=== PATIENT | male | born 1955 | race Caucasian/White ===

== ENCOUNTER 2017-01-04 14:05 | Emergency (ER) | payer OTHER ==
[2017-01-04 14:17] VITALS: BP 113/66
--- NOTE | 2017-01-04 14:59 | PROVIDER DOCUMENTATION ---
HPI-Respiratory General - History of Present Illness-Resp Quality of Pain: reports: aching Severity in ED: reports: moderate Onset/Duration: reports: 2 days ago Timing: reports: still present Similar Symptoms Previously?: No Recently seen or treated by another doctor?: No <Arnie Garibay - Last Filed: 01/04/17 14:54> <FatmataLolly JohnMack - Last Filed: 01/04/17 15:08> - General Chief Complaint: Cough Stated Complaint: BILA EAR PAIN,COUGHING,CONGESTED Time Seen by Provider: 01/04/17 14:22 Allergies/Adverse Reactions: Patient Allergies Allergy/AdvReac Type Severity Reaction Status Date / Time haloperidol [From Haldol] Allergy Unknown Verified 11/29/16 17:24 haloperidol lactate * Allergy Unknown Verified 11/29/16 17:24 [From Haldol] lamotrigine [From Lamictal] Allergy Unknown Verified 11/29/16 17:24 Home Medications: Home Medication List Medication Instructions Recorded Confirmed Last Taken Type Aspirin [Adult Low Dose Aspirin EC] 81 mg PO DAILY #30 tablet. 11/29/16 Unknown Rx Hydrochlorothiazide 50 mg PO DAILY #30 tablet 11/29/16 Unknown Rx Levothyroxine [Synthroid] 100 microgm PO DAILY #30 tablet 11/29/16 Unknown Rx Amoxicillin/Pot Clavulanate 875 mg PO Q12HR #14 tablet 01/04/17 Unknown Rx [Augmentin] Chlorpheniramine/Dextromethorp 1 each PO Q6H PRN PRN #30 tablet 01/04/17 Unknown Rx [Coricidin Hbp Cough & Cold Tab] Neomycin/Polymyxn/Hc Otic Soln 4 drop BOTH EARS TID #1 bottle 01/04/17 Unknown Rx [Cortisporin Otic Soln] - History of Present Illness-Resp Nature of Presenting Problem: REPORTS 2 DAY HX OF COUGH YELLOW AND PRODUCTIVE IN NATURE. ALSO COMPLAINS OF BILATERAL EAR PAIN WITH THROAT PAIN. REPORTS SICK CONTACTS OF UNKNOWN NATURE. REPORTS CHILLS. ILAN Anders,N,V,D. (Arnie Garibay) Review of Systems - Adult - REVIEW OF SYSTEMS - ADULT Constitutional: reports: chills. denies: fever, fatique, weight loss Eyes: reports: no symptoms reported Ears, Nose, Mouth & Throat: reports: ear pain, throat pain. denies: sinus problem, mouth swelling Cardiovascular: denies: chest pain, irregular heart rate, orthopnea, syncope Respiratory: reports: cough. denies: pleurisy, shortness of breath, wheezing Gastrointestinal: denies: abdominal pain, diarrhea, nausea, vomiting Genitourinary: reports: no symptoms reported Musculoskeletal: reports: no symptoms reported Integumentary: reports: no symptoms reported Neurological: reports: no symptoms reported Psychiatric: reports: no symptoms reported Endocrine: reports: no symptoms reported Hematologic/Lymphatic: reports: no symptoms reported Allergic/Immunologic: reports: no symptoms reported All Other Systems: Reviewed and Negative <Arnie Garibay - Last Filed: 01/04/17 14:54> Past History - Adult - PAST MEDICAL HISTORY-ADULT Review of Records: reports: Nursing Assessment Review, Medications Reviewed Major Childhood Illnesses: reports: denies history Cardiovascular: reports: HTN, hyperlipidemia Gastrointestinal: reports: GERD Endocrine/Immune: reports: Diabetes, thyroid disorder - IMMUNIZATION STATUS Childhood Immunizations: See Nurse Assessment Flu Vaccine: See Nurse Assessment - SOCIAL HISTORY Smoking: denies Substance Use: none/never <Arnie Garibay - Last Filed: 01/04/17 14:54> Physical Exam-General - PHYSICAL EXAM-ADULT Initial Vital Signs Reviewed: Yes - CONSTITUTIONAL General Appearance: appears well, alert, no apparent distress - EYES Eyes: PERRL/EOMI - HEAD, EARS, NOSE, MOUTH & THROAT HENMT: moist mucous membranes, pharynx normal, pharyngeal erythema, TM abnormal (BILATERAL RED) - NECK Neck: non-tender, full range of motion, supple, normal inspection, other (MILD CERVICAL LYMPHADENOPATHY BILATERALLY) - RESPIRATORY Respiratory: chest non-tender, lungs clear, no pleuratic chest pain, no respiratory distress, no accessory muscle use, decreased breath sounds ( BILATERALLY). negative: crackles, rales, rhonchi, stridor, wheezing - CARDIOVASCULAR Cardiovascular: regular rate, rhythm - GASTROINTESTINAL (ABDOMEN) Abdominal Exam: normal bowel sounds, non tender, soft, no organomegaly, no pulsatile mass - MUSCULOSKELETAL Back Exam: normal inspection, no CVA tenderness, no vertebral tenderness Extremity: normal range of motion, non-tender - SKIN Integumentary: normal color, normal turgor, warm/dry - NEUROLOGIC Neurologic: grossly normal - PSYCHIATRIC Psych/Mental Status: normal mood/affect, normal thought content, normal thought process, oriented x 3 <Arnie Garibay - Last Filed: 01/04/17 14:54> Progress <Arnie Garibay - Last Filed: 01/04/17 14:54> - XRAY 1 XRAY Study: Chest Impression: See EMR Report (no acute disease, per Dr. Napier) XRAY Interpretation: No pNA <Lolly AvilezMack - Last Filed: 01/04/17 15:08> - PLAN OF CARE/RESULTS Progress/Plan/Lab Results: Orders Category Date Time Status CHEST-2 VIEWS [RAD] Stat Exams 01/04/17 14:25 Taken DIRECT STREP Stat Lab 01/04/17 14:26 Completed INFLUENZA SCREEN A/B Stat Lab 01/04/17 14:26 Received Vital Signs - 24 hr 01/04/17 14:12 Temperature 98.7 F Pulse Rate 97 H Respiratory 18 Rate Blood Pressure 113/66 O2 Sat by Pulse 97 Oximetry (Arnie Garibay) Orders Category Date Time Status CHEST-2 VIEWS [RAD] Stat Exams 01/04/17 14:25 Taken DIRECT STREP Stat Lab 01/04/17 14:26 Completed INFLUENZA SCREEN A/B Stat Lab 01/04/17 14:26 Completed Vital Signs Temp Pulse Resp BP Pulse Ox 01/04/17 14:12 98.7 F 97 H 18 113/66 97 haloperidol [From Haldol] Allergy (Verified 11/29/16 17:24) Unknown haloperidol lactate * [From Haldol] Allergy (Verified 11/29/16 17:24) Unknown lamotrigine [From Lamictal] Allergy (Verified 11/29/16 17:24) Unknown Aspirin [Adult Low Dose Aspirin EC] 81 mg PO DAILY #30 tablet. 11/29/16 Hydrochlorothiazide 50 mg PO DAILY #30 tablet 11/29/16 Levothyroxine [Synthroid] 100 microgm PO DAILY #30 tablet 11/29/16 Amoxicillin/Pot Clavulanate [Augmentin] 875 mg PO Q12HR #14 tablet 01/04/17 Chlorpheniramine/Dextromethorp [Coricidin Hbp Cough & Cold Tab] 1 each PO Q6H PRN PRN #30 tablet 01/04/17 Neomycin/Polymyxn/Hc Otic Soln [Cortisporin Otic Soln] 4 drop BOTH EARS TID #1 bottle 01/04/17 Discussed results and medication use with pt, including return precautions. ( Lolly Avilez) Departure <Arnie Garibay - Last Filed: 01/04/17 14:54> - Departure Time of Disposition Order: 15:03 Certified Medical Emergency: Emergent <Lolly Avilez - Last Filed: 01/04/17 15:08> - Departure DIAGNOSIS: URI (upper respiratory infection) Qualifiers: URI type: unspecified URI Qualified Code(s): J06.9 - Acute upper respiratory infection, unspecified Otitis Qualifiers: Laterality: bilateral Qualified Code(s): H66.93 - Otitis media, unspecified, bilateral Disposition: HOME 01 Condition: Stable Additional Instructions: Take medications as directed. Follow up with PCP for further management. ED Follow Up Instructions: You have been treated by a care provider in the Emergency Department. These instructions are being provided to you so you can have an understanding of how to care for yourself upon discharge. Upon discharge from the Emergency Department, you are responsible for making arrangements for follow-up care by a physician of your choice. Take all prescribed medications as directed. Return to the Emergency Department immediately for any new or worsening symptoms. You may call the Physician Referral phone number at [phone] to obtain a list of Physicians who are taking new patients. Prescriptions: Amoxicillin/Pot Clavulanate [Augmentin] 875 mg PO Q12HR #14 tablet Chlorpheniramine/Dextromethorp [Coricidin Hbp Cough & Cold Tab] 1 each PO Q6H PRN PRN #30 tablet PRN Reason: Cough Neomycin/Polymyxn/Hc Otic Soln [Cortisporin Otic Soln] 4 drop BOTH EARS TID #1 bottle Referrals: Jasiel Duncan MD [Primary Care Provider] - Attestation - Scribe Verification/Attestation Scribe:: Arnie Garibay Acting as Scribe for:: Lolly Avilez Scribe documention review:: This chart was documented by a scribe and accurately reflects the service the provider performed and the decisions made by the provider. <Arnie Garibay - Last Filed: 01/04/17 14:54> Physician Attestation
--- NOTE | 2017-01-04 15:11 | Diag Imaging Result Document ---
PROCEDURE NAME: CHEST-2 VIEWS - 01/04/2017 FRONTAL AND LATERAL CHEST, TWO VIEWS: FINDINGS: The lungs are well expanded. The heart is not enlarged. The vessels are not distended. There are no infiltrates. No pleural effusions. IMPRESSION: No pneumonia.
== END 2017-01-04 15:34 | disposition home or self-care (01) ==
LOC: ED 14:05
DX: J06.9 Acute upper respiratory infection, unspecified (principal); H66.93 Otitis media, unspecified, bilateral; R05 Cough; H92.03 Otalgia, bilateral; R07.0 Pain in throat; R68.83 Chills (without fever); I10 Essential (primary) hypertension; E78.5 Hyperlipidemia, unspecified; Z79.899 Other long term (current) drug therapy; E11.9 Type 2 diabetes mellitus without complications; E07.9 Disorder of thyroid, unspecified; R59.1 Generalized enlarged lymph nodes; Z79.82 Long term (current) use of aspirin
CPT/HCPCS: 71020; 87081; 87430; 87804